=== PATIENT | male | born 1990 | race Caucasian/White ===

== ENCOUNTER 2019-08-22 21:31 | Emergency (ER) | payer SELFPAY ==
[2019-08-22 21:37] VITALS: BP 132/82; PULSE 100; RESP 16; TEMP 36.8; O2SAT 99; BMI 17.4
--- NOTE | 2019-08-22 22:00 | W.ED.DENTAL ---
HPI - Dental/Oral General: Chief complaint: Dental/Oral Stated complaint: oral pain Time Seen by Provider: 08/22/19 21:51 History of Present Illness: HPI Narrative: Patient is a 29-year-old male who comes to the ED with dental pain. Symptoms started about 4 days ago. The pain is located with teeth #15 and 16. Patient says he started to have a little fever yesterday. Patient says he had some leftover amoxicillin and has been taking that for the last 2 days. He is currently in the process of looking for a dentist. Associated symptoms: Reports fever(s); Denies painful swallowing Review of Systems Const: Reports: fever; Denies: chills or fatigue Eyes: Denies: change in vision or eye discomfort ENMT: Reports: dental pain; Denies: throat pain, painful swallowing, nasal discharge or nasal congestion Card: Denies: chest pain, palpitations, edema, swelling of feet/ankles, shortness of breath on exertion or shortness of breath when lying down Resp: Denies: shortness of breath, productive cough or non-productive cough GI: Denies: abdominal pain, nausea, vomiting, diarrhea, constipation or blood in stool : Denies: flank pain, difficulty urinating, painful urination or blood in urine Musc: Denies: neck pain, back pain or extremity swelling Skin/Breast: Denies: rash or new lesion Neuro: Denies: headache, numbness in extremities or weakness in extremities PFS ED PFSH: Social History Smoking and tobacco status: current some day smoker Physical Exam Const: COMMON NORMALS: oriented x3, healthy appearing and alert GENERAL APPEARANCE: cooperative HENMT: COMMON NORMALS: normocephalic HEAD & SCALP: normocephalic MOUTH: oral and palatal mucosa normal TEETH & GINGIVA: Yes caries (Teeth #15 and 16) and Yes gingiva abnormal edematous (Around teeth #15 and 16.) THROAT: posterior oropharynx normal and uvula midline Eye: COMMON NORMALS: PERRL PUPIL: Yes PERRL Neck/C-Spine: COMMON NORMALS: supple GENERAL: Yes normal visual inspection Lymph: LYMPHATIC: lymphadenopathy ( Left anterior cervical nodes palpated-mild) Resp: COMMON NORMALS: normal respiratory effort, no retractions, no use of accessory muscles and clear to auscultation bilaterally AUSCULTATION: clear to auscultation bilaterally Cardio: COMMON NORMALS: regular rate, regular rhythm, S1 normal heart sound, S2 normal heart sound, no gallops, no clicks, no murmurs and peripheral pulses 2+ throughout RATE: regular rate RHYTHM: regular rhythm HEART SOUNDS: S1 normal and S2 normal PERIPHERAL PULSES: pulses 2+ throughout GI: COMMON NORMALS: normal to inspection, nondistended, normoactive bowel sounds, soft to palpation, non-tender and no masses PALPATION: Yes soft : COMMON NORMALS: Yes no CVA tenderness BLADDER/KIDNEY EXAM: Yes no CVA tenderness Back/Pelvis: COMMON NORMALS: no CVA tenderness Extremity: COMMON NORMALS: normal to inspection Neuro: COMMON NORMALS: oriented x3 and moves all extremities SENSORIUM/ORIENTATION: Yes alert Skin: COMMON NORMALS: no rashes or lesions noted GENERAL SKIN EXAM: no rashes or lesions noted and dry skin Course Vital Signs: Vital signs: Vital Signs Temperature 98.2 F 08/22/19 21:37 Pulse Rate 100 08/22/19 21:37 Respiratory Rate 14 08/22/19 22:30 Blood Pressure 132/82 08/22/19 21:37 Pulse Oximetry 99 08/22/19 21:37 MDM - Dental/Oral MDM Narrative: Medical decision making narrative: Patient is a 29-year-old male who comes to the ED with dental pain. Physical exam showed dental caries in teeth numbers 15 and 16. Patient was given a prescription for clindamycin and told to follow-up with a dentist in 7 to 10 days. He was told to use ibuprofen or Tylenol for pain. Patient understood and agreed with plan. Discharge Plan Discharge Patient Disposition: Home, Self-Care Clinical Impression: Pain due to dental caries Condition: Stable Prescriptions: New clindamycin HCl 150 mg capsule 300 mg PO QID 7 Days Qty: 56 RF: 0 Discharge Orders: Discharge Order (Routine); Ordered 08/22/19 Ordered By: Ashu Ascencio Discharge Diet: Regular Discharge Activity: Resume usual activity Patient Instructions: Dental Caries (ED) Activity Restrictions/Additional Instructions: Follow-up with a dentist in the next 7 to 10 days for reevaluation. Take full course of antibiotics as prescribed. You can take [id number] Tylenol or ibuprofen to help with pain. Discharge Date/Time: 08/22/19 22:30 Coding Level of Care Code ED International Nurse for Chg Fwd Exam Comprehensive
[2019-08-22] MEDS: clindamycin 150 mg Capsule 300 MG PO (22:21)
[2019-08-22] MEDS: HYDROcodone-acetaminophen 7.5-325 mg Tablet 1 TAB PO (22:21)
[2019-08-22 22:30] VITALS: RESP 14
== END 2019-08-22 22:30 | disposition home or self-care (01) ==
PROVIDERS: Emergency Provider Physician Assistant
DX: K02.9 Dental caries, unspecified (principal); F17.210 Nicotine dependence, cigarettes, uncomplicated
CPT/HCPCS: 12345; 99281; 99283